=== PATIENT | female | born 1980 | race Two or more races ===

== ENCOUNTER 2025-03-21 06:50 | Day surgery (SDC) | payer MEDICAID, SELFPAY ==
[2025-03-20 11:02] VITALS: BMI 28.8
[2025-03-21] VITALS (8 sets, daily range): BP systolic 103–141; BP diastolic 63–86; PULSE 55–82; RESP 15–20; TEMP 36.7–37.1; O2SAT 100; BMI 28.5
[2025-03-21] MEDS: SODIUM CHLORIDE 0.9% 500 ML 500 ML 20 ML IV (07:48)
[2025-03-21] MEDS: MIDAZOLAM INJ 1 MG/ML VIAL 2 ML (ASD USE ONLY) 2 MG IV (07:49)
[2025-03-21] MEDS: DiphenhydrAMINE INJ 50 MG/ML VIAL 25 MG IV (07:49)
[2025-03-21] MEDS: fentaNYL CIT INJ 50 mCg/ML AMP 2ML (ASD USE ONLY) IV (07:49)
== END 2025-03-21 08:30 | disposition home or self-care (01) ==
PROVIDERS: Referring Provider Surgery; Visit Provider Surgery
PROC: 0DBE8ZX Excision of Large Intestine, Via Natural or Artificial Opening Endoscopic, Diagnostic (ICD-10-PCS; CPT 45380; principal; 2025-03-21 08:00)
DX: Z12.11 Encounter for screening for malignant neoplasm of colon (principal); K64.0 First degree hemorrhoids
CPT/HCPCS: 45378; 81025; J1200; J2250; J3010; J7040